=== PATIENT | male | born 1950 | race Caucasian/White ===

== ENCOUNTER 2017-01-18 00:29 | Day surgery (SDC) | payer MEDICARE, OTHER ==
[~2017-01-18] VITALS: Ht 177.8 cm; Wt 68.0 kg
[~2017-01-18 00:29] MED LIST: ALBU18HF INH; ASCO-294 PO; BRIM5DRO10 OP; BRIN10DR OP; CHOL10008 PO; FLAX100038 PO; GLUC-123 PO; MULT-544 PO; RANI150C4 PO; SAW/1TAB2 PO
[2017-01-18] MEDS ORDERED: fentaNYL-PF 50 mCg/mL 2 mL Inj IVPUSH PRN (06:00)
[2017-01-18] MEDS ORDERED: 0.9% Sodium Chloride 1,000 ML IV SCH (06:00)
[2017-01-18] MEDS ORDERED: Sodium Chloride LOK Flush 10 mL Syringe IV PRN (06:00)
[2017-01-18 14:20] VITALS: BP 110/70; PULSE 78; RESP 16; O2SAT 98
[2017-01-18 15:09] VITALS: BP 89/58; PULSE 64; RESP 14; O2SAT 98
[2017-01-18 15:19] VITALS: BP 89/58; PULSE 64; RESP 14; O2SAT 98
[2017-01-18 15:26] VITALS: BP 107/67; PULSE 63; RESP 14; O2SAT 97
--- NOTE | 2017-01-19 07:51 | ENDO ---
[address] [address] ENDOSCOPY PROCEDURE PATIENT: DALE SPENCER : 1950 MR#: [id number] ADMIT: 01/18/2017 JOB ID: [id number] DATE OF SERVICE: 01/18/2017 OPERATION: Colonoscopy. PREOPERATIVE DIAGNOSIS(ES): Colorectal cancer screening. POSTOPERATIVE DIAGNOSIS(ES): Normal colonoscopy. ANESTHESIA: 1. Fentanyl 75 mcg. 2. Versed 4 mg IV administered. COMPLICATIONS: None. BLOOD LOSS: Minimal. DESCRIPTION OF PROCEDURE: After risks and benefits were explained to the patient, informed consent was obtained. After anesthesia administered, colonoscope was inserted from the rectum to the cecum. Mucosa carefully examined. Prep of the patient was excellent. After the procedure was done, the scope was withdrawn and the procedure terminated. FINDINGS: Upon inspection of the anus, no masses, hemorrhoids, ulcers, or fissures were seen. Throughout the entire examination, there were no polyps, masses, or lesions. Retroflexion was normal. IMPRESSION: Normal colonoscopy. RECOMMENDATIONS: Repeat colonoscopy in 10 years for colorectal cancer screening.
== END 2017-01-18 23:59 | disposition home or self-care (01) ==
LOC: END 00:29
PROVIDERS: ATTEND Internal Medicine Gastroenterology
DX: Z12.11 Encounter for screening for malignant neoplasm of colon (principal); J44.9 Chronic obstructive pulmonary disease, unspecified; E78.2 Mixed hyperlipidemia; K21.9 Gastro-esophageal reflux disease without esophagitis; R01.1 Cardiac murmur, unspecified; R76.8 Other specified abnormal immunological findings in serum
CPT/HCPCS: G0121; G0500; J2250; J3010; J7030